=== PATIENT | female | born 1930 | race Caucasian/White ===

== ENCOUNTER 2016-02-20 03:33 | Emergency (ER) | payer OTHER, BC ==
[~2016-02-20] VITALS: Ht 162.6 cm; Wt 81.4 kg
[~2016-02-20 03:33] MED LIST: Benadryl PO; CIPRO250 MG PO; Coumadin dosing per PO; Dulcolax PO; Feosol PO; IMURAN50 MG PO; LEXAPRO10 MG PO; MARTINIC1 EACH PO; MESTINON60 MG PO; Milk Of Magnesia,MOM PO; Oyst-Cal D, Oscal W/ PO; PRAVACHOL20 MG PO; PROTONIX40 MG PO; SENOKOT S,PE1 TABLET PO; THERAGRAN1 TABLET PO; Tylenol Regular Stre PO; ULTRAM50 MG PO; XANAX0.25 MG PO; Xanax PO; ZOFRAN4 MG PO
[2016-02-20 04:24] LABS: ADD MIUA? YES; BILIRUBIN NEGATIVE; BLOOD LARGE; COLOR YELLOW ((YELLOW)); GLUCOSE (STRIP) NEGATIVE; KETONES NEGATIVE; LEUKOCYTES SMALL; NITRITE POSITIVE; PH, URINE 5.5 (5-8); PROTEIN (STRIP) TRACE; SPECIFIC GRAVITY 1.017 (1.000-1.030); UROBILINOGEN 0.2 MG/DL (0.2-1.0)
[2016-02-20 04:25] LABS: HEMATOCRIT 39.4 % (36.0-46.0); MCH 33.9 PG (29.0-34.0); MCHC 33.2 G/DL (30.0-36.0); MCV 102.1 FL (83-99); MEAN PLAT.VOLUME 10.7 uM^3 (9.5-12.4); PLATELET COUNT 332 K/uL (156-360); RBC DIS.WIDTH-CV 13.8 % (11.8-14.6); RBC DIS.WIDTH-SD 50.7 % (39-53); RED BLOOD COUNT 3.86 M/uL (3.80-5.20); WHITE BLOOD COUNT 15.3 K/uL (4.1-10.2)
[2016-02-20 04:35] LABS: CHLORIDE 112 mEq/L (99-109); POTASSIUM 4.4 mEq/L (3.7-5.4); SODIUM 143 mEq/L (136-147)
[2016-02-20 04:37] LABS: GLUCOSE 122 mg/dL (70-99)
[2016-02-20 04:39] LABS: ANION GAP 13 MEQ/L (2-14); TOTAL BILIRUBIN 0.7 mg/dL (0.0-1.0)
[2016-02-20 04:41] LABS: ALKALINE PHOSPHATASE 105 IU/L (3-129); GFR ESTIMATE (CALCULATED) 56 mL/min/
[2016-02-20 04:42] LABS: UREA NITROGEN (BUN) 26 mg/dL (9-23)
[2016-02-20 04:45] LABS: WHITE BLOOD CELLS 0-5 /HPF (0-5)
[2016-02-20 04:46] LABS: BACTERIA 2+; CASTS NONE SEEN /LPF; CRYSTALS NONE SEEN; EPITHELIAL CELLS RARE; MUCUS NONE SEEN; UCUL ADDED? NO
[2016-02-20] MEDS ORDERED: ZOFRAN4 MG PO (05:12)
[2016-02-20] MEDS ORDERED: CIPRO500 MG PO (05:12)
[2016-02-20 06:20] VITALS: BP 164/79
== END 2016-02-20 06:40 | disposition home or self-care (01) ==
LOC: EME 03:33
DX: K52.9 Noninfective gastroenteritis and colitis, unspecified (principal); N39.0 Urinary tract infection, site not specified; E86.0 Dehydration; J45.909 Unspecified asthma, uncomplicated; K21.9 Gastro-esophageal reflux disease without esophagitis; G70.00 Myasthenia gravis without (acute) exacerbation
CPT/HCPCS: 71020; 74176; 80053; 81003; 85027; 87077; 87086; 87186; 99281; 99285; J1885; J2405; J7030

== ENCOUNTER 2017-04-15 12:34 | Inpatient (IN) | payer OTHER, BC ==
[~2017-04-15] VITALS: Ht 175.3 cm; Wt 77.3 kg
[~2017-04-15 12:34] MED LIST changes: +ARICEPT5 MG PO; +CIPRO500 MG PO; -LEXAPRO10 MG PO; +LEXAPRO20 MG PO; +NAMENDA10 MG PO
[2017-04-15 13:32] LABS: BASOPHIL (%) 0.3 % (0-1); EOSINOPHIL (%) 0.3 % (0-5); HEMATOCRIT 35.3 % (36.0-46.0); HEMOGLOBIN 12.1 G/DL (11.9-15.5); IMMATURE GRANULOCYTE (%) 0.3 % (0.0-0.7); LYMPHOCYTE (%) 3.3 % (15-42); LYMPHOCYTE COUNT 0.2 K/uL (1.0-2.8); MCHC 34.3 G/DL (30.0-36.0); MCV 99.2 FL (83-99); MONOCYTE COUNT 0.3 K/uL (0-0.8); NEUTROPHIL (%) 90.8 % (45-76); NEUTROPHIL COUNT 5.2 K/uL (1.8-6.4); PLATELET COUNT 191 K/uL (156-360); RBC DIS.WIDTH-CV 13.6 % (11.8-14.6); RBC DIS.WIDTH-SD 50.1 % (39-53); RED BLOOD COUNT 3.56 M/uL (3.80-5.20); WHITE BLOOD COUNT 5.8 K/uL (4.1-10.2)
[2017-04-15 13:39] LABS: INTER. NORMALIZED RATIO 1.1
[2017-04-15 13:41] LABS: AMYLASE 68 IU/L (1-118); CHLORIDE 108 mEq/L (99-109); PTT 25.3 SEC (25-37); SODIUM 135 mEq/L (136-147)
[2017-04-15 13:43] LABS: GLUCOSE 126 mg/dL (70-99)
[2017-04-15 13:46] LABS: SERUM ETHYL ALCOHOL < 10 mg/dL
[2017-04-15 13:47] LABS: CREATININE 1.1 mg/dL (0.6-1.3); GFR ESTIMATE (CALCULATED) 50 mL/min/
[2017-04-15 13:48] LABS: UREA NITROGEN (BUN) 17 mg/dL (9-23)
[2017-04-15 13:50] LABS: LIPASE 37 U/L (1.0-51.0)
[2017-04-15 13:53] LABS: TROP-I INTERPRETATION NEGATIVE; TROPONIN-I < 0.01 ng/mL (0.0-0.30)
[2017-04-15 15:37] LABS: APPEARANCE CLEAR ((CLEAR)); BILIRUBIN NEGATIVE; BLOOD LARGE; COLOR YELLOW ((YELLOW)); GLUCOSE (STRIP) NEGATIVE; KETONES 5; LEUKOCYTES NEGATIVE; NITRITE NEGATIVE; PROTEIN (STRIP) NEGATIVE; SPECIFIC GRAVITY 1.012 (1.000-1.030); UROBILINOGEN 0.2 MG/DL (0.2-1.0)
[2017-04-15 15:40] LABS: BACTERIA NONE SEEN /HPF; EPITHELIAL CELLS RARE /HPF; MUCUS TRACE /LPF; RED BLOOD CELLS TNTC /HPF (0-5); UCUL ADDED? YES; WHITE BLOOD CELLS 0-5 /HPF (0-5)
[2017-04-15 15:47] LABS: AMPHETAMINE NEGATIVE (500 ng/mL); BARBITURATES NEGATIVE (200 ng/mL); BENZODIAZEPINES NEGATIVE (150 ng/mL); BUPRENORPHINE NEGATIVE (10 ng/mL); COCAINE NEGATIVE (150 ng/mL); METHADONE NEGATIVE (200 ng/mL); METHAMPHETAMINE NEGATIVE (500 ng/mL); OPIATES (MORPHINE) NEGATIVE (100 ng/mL); OXYCODONE NEGATIVE (100 ng/mL); PHENCYCLIDINE NEGATIVE (25 ng/mL); PROPOXYPHENE NEGATIVE (300 ng/mL); THC CANNABINOIDS NEGATIVE (50 ng/mL); TRICYCLIC ANTIDEPRESSANTS NEGATIVE (300 ng/mL)
[2017-04-15] MEDS ORDERED: BACTRIM,SEPT1 TABLET PO (16:05)
[2017-04-15 16:59] LABS: HDL CHOLESTEROL 52 MG/DL (Desirable>=50); LDL CHOLESTEROL 68 mg/dL (Desirable<100); NON-HDL CHOLESTEROL 81 mg/dL (Desirable<160); TOTAL CHOLESTEROL 133 mg/dL (Desirable<200); TRIGLYCERIDES 67 MG/DL (Normal: <150)
[2017-04-15] MEDS ORDERED: PROTONIX40 MG PO (18:57)
[2017-04-15 19:09] VITALS: BP 164/100
[2017-04-16 00:14] VITALS: BP 145/85
[2017-04-16 03:56] VITALS: BP 133/74
[2017-04-16 08:09] VITALS: BP 137/64
[2017-04-16 12:55] VITALS: BP 134/86
[2017-04-16 16:21] VITALS: BP 138/71
[2017-04-16 20:00] VITALS: BP 155/81
[2017-04-17 00:32] VITALS: BP 168/80
[2017-04-17 04:00] VITALS: BP 164/82
[2017-04-17 06:48] LABS: BASOPHIL (%) 0.4 % (0-1); EOSINOPHIL (%) 2.6 % (0-5); EOSINOPHIL COUNT 0.1 K/uL (0-0.3); HEMATOCRIT 35.7 % (36.0-46.0); IMMATURE GRANULOCYTE (%) 0.4 % (0.0-0.7); LYMPHOCYTE (%) 22.5 % (15-42); MCH 32.8 PG (29.0-34.0); MCHC 33.6 G/DL (30.0-36.0); MCV 97.5 FL (83-99); MONOCYTE (%) 16.2 % (3-12); MONOCYTE COUNT 0.7 K/uL (0-0.8); NEUTROPHIL (%) 57.9 % (45-76); NEUTROPHIL COUNT 2.6 K/uL (1.8-6.4); PLATELET COUNT 219 K/uL (156-360); RBC DIS.WIDTH-CV 13.5 % (11.8-14.6); RBC DIS.WIDTH-SD 49.3 % (39-53); RED BLOOD COUNT 3.66 M/uL (3.80-5.20); WHITE BLOOD COUNT 4.6 K/uL (4.1-10.2)
[2017-04-17 07:10] LABS: CHLORIDE 111 MEQ/L (99-109); CREATININE 1.1 MG/DL (0.6-1.3); GFR ESTIMATE (CALCULATED) 50 mL/min/; GLUCOSE 100 mg/dL (70-99); POTASSIUM 3.4 MEQ/L (3.7-5.4); SODIUM 140 MEQ/L (136-147); UREA NITROGEN (BUN) 19 mg/dL (9-23)
[2017-04-17 07:58] VITALS: BP 139/70
[2017-04-17 10:11] LABS: HEMOGLOBIN A1c (GLYCOHEMOGLOB) 5.3 % (Below 5.7)
[2017-04-17 11:51] VITALS: BP 122/72
[2017-04-17 15:48] VITALS: BP 128/62
[2017-04-17 20:00] VITALS: BP 135/66
[2017-04-18] VITALS: BP 160/74
[2017-04-18 04:00] VITALS: BP 154/78
[2017-04-18 07:23] LABS: CHLORIDE 111 MEQ/L (99-109); CREATININE 0.9 MG/DL (0.6-1.3); GFR ESTIMATE (CALCULATED) > 59 mL/min/; GLUCOSE 97 mg/dL (70-99); POTASSIUM 3.8 MEQ/L (3.7-5.4); SODIUM 139 MEQ/L (136-147); UREA NITROGEN (BUN) 20 mg/dL (9-23)
[2017-04-18 07:37] VITALS: BP 131/68
[2017-04-18 11:38] VITALS: BP 123/57
[2017-04-18] MEDS ORDERED: CLOPIDOGREL75 MG PO (13:01)
[2017-04-18] MEDS ORDERED: XANAX0.25 MG PO (13:02)
== END 2017-04-18 15:09 | DRG 57 ==
LOC: EME 12:34 → 5SOUTH 15:53 → EDOF 15:53 → ENRESERV 15:54 → 5SOUTH 19:09
PROVIDERS: Emergency Medicine; Family Medicine
DX: G30.9 Alzheimer's disease, unspecified (principal); F02.80 Dementia in other diseases classified elsewhere, unspecified severity, without behavioral disturbance, psychotic disturbance, mood disturbance, and anxiety; R47.02 Dysphasia; E86.0 Dehydration; E78.5 Hyperlipidemia, unspecified; F41.1 Generalized anxiety disorder; G70.00 Myasthenia gravis without (acute) exacerbation; F32.9 Major depressive disorder, single episode, unspecified; J45.909 Unspecified asthma, uncomplicated; K21.9 Gastro-esophageal reflux disease without esophagitis; R03.0 Elevated blood-pressure reading, without diagnosis of hypertension; Z88.6 Allergy status to analgesic agent; Z87.440 Personal history of urinary (tract) infections
CPT/HCPCS: 70450; 70551; 80048; 80061; 81003; 82150; 82150 91; 82945; 82948; 83036; 83615 91; 83690; 84484; 85025; 85610; 85730; 86850; 86900; 86901; 87086; 89051; 92610 GN; 93880; 99281; 99284; G0480; J0360; J1650; J2405; J3480; J7050; J7500